=== PATIENT | male | born 1985 ===

== ENCOUNTER 2019-10-06 22:15 | Emergency (ER) | payer SELFPAY ==
[2019-10-06 22:45] VITALS: BP 161/103; PULSE 108; RESP 18; TEMP 36.6; O2SAT 97; BMI 39.9
--- NOTE | 2019-10-06 22:53 | W.ED.ABDPA2 ---
HPI - Abdominal Pain General: Chief Complaint: Abdominal Pain Stated Complaint: abd pain Time Seen by Provider: 10/06/19 22:32 History of Present Illness: HPI narrative: Patient is a 34-year-old male who comes to the ED with abdominal pain. Patient has a past medical history of ulcerative colitis with bowel resection. 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 He is having 9 out of 10 abdominal pain with many episodes of diarrhea over the past 24 hours. Patient has a GI specialist that he sees in [facility]. He has been in touch with GI doctor and they are going to do a colonoscopy tomorrow morning. GI specialist told him that if he needs to stop somewhere and see an emergency department due to abdominal pain to let them know the typical regimen patient is given for these kinds of flareups. Patient states he usually gets Zofran, Dilaudid, Solu-Medrol, Flagyl and Cipro when he has these UC flareups. GI specialist told patient to let emergency department know that he will be performing colonoscopy tomorrow morning so only do imaging if labs are concerning and would warrant imaging. Associated Symptoms: Reports diarrhea and nausea; Denies chills, constipation, dysuria, fever(s), hematochezia, hematuria and vomiting Review of Systems Const: Denies: fever(s), chills or fatigue Eyes: Denies: change in vision or eye discomfort ENMT: Denies: throat pain, odynophagia, nasal discharge or nasal congestion Card: Denies: chest pain, palpitations, edema, swelling of feet/ankles, dyspnea on exertion or orthopnea Resp: Denies: dyspnea, productive cough or non-productive cough GI: Reports: abdominal pain, nausea and diarrhea; Denies: vomiting, constipation or hematochezia : Denies: flank pain, difficulty urinating, dysuria or hematuria Musc: Denies: neck pain, back pain or extremity swelling Skin/Breast: Denies: rash or new lesions Neuro: Denies: headache(s), numbness in extremities or weakness in extremities PFS ED PFSH: Social History Smoking and tobacco status: never smoked Physical Exam Const: COMMON NORMALS: patient oriented x3 and alert GENERAL APPEARANCE: cooperative; not comfortable (Uncomfortable due to abdominal pain.) HENMT: COMMON NORMALS: normocephalic HEAD & SCALP: normocephalic MOUTH: Normal oral and palatal mucosa present THROAT: posterior oropharynx normal and uvula midline Eye: COMMON NORMALS: Equal, round and reactive pupils present PUPIL: Yes Equal, round and reactive pupils present Neck/C-Spine: COMMON NORMALS: supple GENERAL: Yes normal visual inspection Resp: COMMON NORMALS: normal respiratory effort, No retractions, No use of accessory muscles and clear to auscultation bilaterally AUSCULTATION: clear to auscultation bilaterally Cardio: COMMON NORMALS: regular rate, regular rhythm, S1 normal heart sound present, S2 normal heart sound present, No gallops present (Cardio), No clicks present (Cardio), No murmurs present (Cardio) and Peripheral pulses 2+ throughout RATE: regular rate RHYTHM: regular rhythm HEART SOUNDS: S1 normal heart sound present and S2 normal heart sound present PERIPHERAL PULSES: Peripheral pulses 2+ throughout GI: COMMON NORMALS: Normal to inspection, nondistended, normoactive bowel sounds present, Soft to palpation and no masses INSPECTION: Yes central obesity and Yes scar (Due to previous ostomy and bowel resection.) PALPATION: Yes Soft to palpation and Yes Tenderness to palpation present (GI) Details: LLQ and RLQ : COMMON NORMALS: Yes no CVA tenderness BLADDER/KIDNEY EXAM: Yes no CVA tenderness Back/Pelvis: COMMON NORMALS: no CVA tenderness Extremity: COMMON NORMALS: normal to inspection, capillary refill normal and no pedal edema Neuro: COMMON NORMALS: patient oriented x3 SENSORIUM/ORIENTATION: Yes alert GAIT: Yes Normal gait present Skin: COMMON NORMALS: no rashes or lesions noted GENERAL SKIN EXAM: no rashes or lesions noted and dry skin Course Vital Signs: Vital signs: Vital Signs Temperature 97.8 F 10/06/19 22:45 Pulse Rate 87 10/07/19 02:06 Respiratory Rate 20 H 10/07/19 02:06 Blood Pressure 145/95 10/07/19 02:06 Pulse Oximetry 97 10/07/19 02:06 MDM - Abdominal Pain MDM Narrative: Medical decision making narrative: Patient is a 34-year-old male with a past medical history of ulcerative colitis that comes to the ED with a UC flareup. Patient says that he has a GI specialist in [place], [place] that he sees and will actually be seeing GI specialist tomorrow morning for colonoscopy. GI specialist is aware of patient's acute flareup. Patient says he stopped here in the ED because he is a dedicated intermodal truck driver and could not handle some of the pain and symptoms. Patient told me what GI specialist recommends doing for treatment of acute flareups. The recommendation was Solu-Medrol, Flagyl, Cipro, Zofran and Dilaudid for pain. Once patient's pain was under control he wanted to be discharged so we can continue heading towards [facility] to see his GI specialist tomorrow morning. Meds were administered through IV and patient's pain was controlled and he was ready for discharge. He will be seeing his GI specialist tomorrow morning. Lab Data: Attestation: I reviewed the patient's lab results. Labs: Lab Results 10/06/19 10/06/19 Range/Units 22:50 22:50 WBC 10.6 H (4.0-10.0) 10^3/ uL RBC 5.10 (4.1-5.3) 10^6/u L Hgb 14.3 (11.7-16.6) g/dL Hct 43.3 (42.0-52.0) % MCV 84.9 (80-94) fL MCH 28.0 (28.0-34.0) pg MCHC 33.0 (30.0-36.0) g/dL RDW 12.4 (12.1-15.1) % Plt Count 218 (130-400) 10^3/c mm MPV 10.8 H (7.4-10.4) fL Neut % (Auto) 79.0 % Lymph % (Auto) 13.2 % [place] % (Auto) 5.9 % Eos % (Auto) 1.1 % Baso % (Auto) 0.4 % Neut # (Auto) 8.4 H (1.8-7.7) 10^3/u L Lymph # (Auto) 1.4 (0.8-4.8) 10^3/u L [place] # (Auto) 0.6 (0.2-0.9) 10^3/u L Eos # (Auto) 0.1 (0.0-0.8) 10^3/u L Baso # (Auto) 0.0 (0.0-0.1) 10^3/u L Nucleated RBC % (a uto) 0 % Nucleated RBCs # 0.0 /100WBC Sodium 136 (136-145) mmol/L Potassium 3.9 (3.5-5.1) mmol/L Chloride 101 (98-107) mmol/L Carbon Dioxide 25 (22-29) mmol/L Anion Gap 13.9 (5-19) BUN 12 (6-20) mg/dL Creatinine 1.0 (0.7-1.2) mg/dL GFR Calculation 84.5 L (90-130) mL/min Glucose 192 H (65-115) mg/dL Calculated Osmolal ity 283 L (285-295) mOsm/k g Calcium 9.5 (8.5-10.5) mg/dL Total Bilirubin 0.3 (0.15-1.2) mg/dL AST 23 (0-40) U/L ALT 41 (0-41) U/L Alkaline Phosphata se 120 (40-130) IU/L Total Protein 6.3 L (6.6-8.7) g/dL Albumin 4.4 (3.5-5.2) g/dL Globulin 1.9 (1.3-4.6) g/dL Lipase 45 (13-60) U/L Discharge Plan Discharge Patient Disposition: Home, Self-Care Clinical Impression: Ulcerative colitis, chronic Qualifiers: Ulcerative colitis location: ulcerative rectosigmoiditis Digestive disease complication type: unspecified complication Qualified Code(s): K51.319 - Ulcerative (chronic) rectosigmoiditis with unspecified complications Condition: Stable Discharge Orders: Discharge Order (Routine); Ordered 10/07/19 Ordered By: Stefan Figueredo Discharge Diet: Regular Discharge Activity: Resume usual activity Patient Instructions: Ulcerative Colitis (ED) Activity Restrictions/Additional Instructions: Go to your scheduled GI specialist appointment for colonoscopy tomorrow morning for further evaluation. Discharge Date/Time: 10/07/19 02:10 Coding Level of Care Code ED Wheel Roller for g Fwd Exam Comprehensive
[2019-10-06 22:57] LABS: Basophils % 0.4 %; Eosinophils # 0.1 10^3/uL (0.0-0.8); Eosinophils % 1.1 %; Hematocrit 43.3 % (42.0-52.0); Hemoglobin 14.3 g/dL (11.7-16.6); Lymphocytes # 1.4 10^3/uL (0.8-4.8); Lymphocytes % 13.2 %; Mean Corpuscular Volume 84.9 fL (80-94); Mean Platelet Volume 10.8 fL (7.4-10.4); Monocytes # 0.6 10^3/uL (0.2-0.9); Monocytes % 5.9 %; Neutrophils # 8.4 10^3/uL (1.8-7.7); Nucleated Red Blood Cells % 0 %; Platelet Count 218 10^3/cmm (130-400); Red Cell Distribution Width 12.4 % (12.1-15.1); White Blood Count 10.6 10^3/uL (4.0-10.0)
[2019-10-06] MEDS: sodium chloride 0.9% 1,000 ML 999 ML IV (23:16)
[2019-10-06 23:17] LABS: Alanine Aminotransferase 41 U/L (0-41); Albumin Level 4.4 g/dL (3.5-5.2); Alkaline Phosphatase 120 IU/L (40-130); Anion Gap 13.9 (5-19); Aspartate Amino Transferase 23 U/L (0-40); Blood Urea Nitrogen 12 mg/dL (6-20); Calcium 9.5 mg/dL (8.5-10.5); Carbon Dioxide 25 mmol/L (22-29); Chloride 101 mmol/L (98-107); Globulin 1.9 g/dL (1.3-4.6); Glomerular Filtration Rate 84.5 mL/min (90-130); Glucose 192 mg/dL (65-115); Lipase 45 U/L (13-60); Osmolality Calculated 283 mOsm/kg (285-295); Potassium 3.9 mmol/L (3.5-5.1); Sodium 136 mmol/L (136-145); Total Bilirubin 0.3 mg/dL (0.15-1.2); Total Protein 6.3 g/dL (6.6-8.7)
[2019-10-06] MEDS: ondansetron 2 mg/ML SDV 2 mL 4 MG IVP (23:19)
[2019-10-06 23:20] VITALS: RESP 18
[2019-10-06] MEDS: HYDROmorphone 1 mg/mL INJ 1 mL IVP (23:20)
[2019-10-06] MEDS: ciprofloxacin 400 MG/200 ML PREMIX 200 MG IV (23:22)
[2019-10-07] VITALS: RESP 18
[2019-10-07] MEDS: HYDROmorphone 1 mg/mL INJ 1 mL IVP
[2019-10-07 00:08] VITALS: BP 132/80; PULSE 98; RESP 18; O2SAT 100
[2019-10-07 00:39] VITALS: BP 109/75; PULSE 76; RESP 18; O2SAT 97
[2019-10-07] MEDS: metroNIDAZOLE 500 MG Tablet PO (00:57)
[2019-10-07] MEDS: ondansetron 4 MG Tablet PO (00:57)
[2019-10-07 01:01] VITALS: RESP 20
[2019-10-07] MEDS: HYDROmorphone 1 mg/mL INJ 1 mL 0.5 MG IVP (01:01)
[2019-10-07 02:06] VITALS: BP 145/95; PULSE 87; RESP 20; O2SAT 97
== END 2019-10-07 02:10 | disposition home or self-care (01) ==
PROVIDERS: Emergency Provider Physician Assistant
DX: K51.30 Ulcerative (chronic) rectosigmoiditis without complications (principal)
CPT/HCPCS: 12345; 80053; 83690; 85025; 96365; 96368; 96375; 96376; 99283; J0744; J1170; J2405; J2930; J7030; Q0162